=== PATIENT | female | born 1980 | race Caucasian/White ===

== ENCOUNTER → 2016-12-29 | Outpatient (CLI) | payer BC ==
--- NOTE | 2016-12-29 10:58 | WWHP ---
[facility] - HISTORY AND PHYSICAL DATE OF SERVICE: 12/29/2016. CHIEF COMPLAINT: The patient is here for her routine gynecologic exam and mammogram. HPI: This is a 36-year-old , with an LMP of 12/04/2016. The patient does have a Mirena IUD in place for control. This was placed in 01/2012. The patient is requesting that it be removed since it is due to be removed. She also states she does not like how she was feeling with the infrequent periods. She states that she feels like there is a hormonal buildup that makes her feel crabby. She states about 1 year ago she and her were contemplating attempting again, but now this is less likely and she is uncertain if she has completed her childbearing. She would like to be started on control pills, which she has done well with in the past. PAST MEDICAL HISTORY: Depression and anxiety. She tested negative for BRCA gene because of her mother's history of breast cancer and this was negative. MEDICATIONS: 1. Zoloft 25 mg daily. 2. Xanax 0.25 mg p.r.n. for anxiety. 3. Mirena IUD was in place and was placed on 01/21/2012. 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 SOCIAL HISTORY: She denies tobacco and drug use. She has about 3 alcoholic drinks per month. She has been since 2002 and works for the [employer]. REVIEW OF SYSTEMS: She has gained about 6 pounds over the last 2 years. She denies respiratory, cardiac or GI problems. PHYSICAL EXAM: Blood pressure 136/75, height 5 feet 1 inch, weight 168 pounds, temperature 98.5, pulse 70. This is a well-developed, well-nourished, white female, who is alert and oriented x3, in no acute distress. HEENT is within normal limits. NECK: Supple without mass or thyromegaly. CHEST AND LUNGS: Clear to auscultation. HEART: Regular rate and rhythm. Breasts are without mass or discharge. Axillary exam is negative for adenopathy. Back negative for CVA tenderness. ABDOMEN: Soft, nontender, without palpable masses. PELVIC EXAM: External genitalia reveals a pigmented area measuring approximately 1.5 x 1 cm on the right labia majora, which is stable from her previous exam. This was previously biopsied and was benign. The borders are regular. There are no other lesions. Cervix and vagina appear normal. The IUD string was protruding from the cervix about 2.5 cm. There is no unusual discharge and no evidence of prolapse. The uterus is mid position, nongravid size and nontender. There are no palpable adnexal masses or tenderness. The IUD was removed without difficulty as requested by the patient. The rectal exam is negative for mass or tenderness. EXTREMITIES: Nontender. IMPRESSION: 1. A 36-year-old gynecologically healthy female who had a Mirena IUD in place that was removed today. 2. Normal gynecologic exam. 3. Family history of breast cancer in her mother at age 33. PLAN: 1. Pap smear was performed. 2. Self breast examination was discussed. 3. Mirena IUD was removed today as above. She will be started on Ortho Tri-Cyclen 1 daily and she will start this on the Wednesday following the onset of her next normal menstrual period. She will use condoms through the 1st pack of pills. We have discussed possible risks with control pills including a possible increased risk for blood clots. 4. I have recommended that she take a daily multiple vitamin, especially if she decides to actively pursue . 5. Mammogram will be done today because of her family history of breast cancer and this will be done yearly. 6. She will return in 1 year. VU / JOAQUÍN: [id number] /
--- NOTE | 2016-12-30 07:13 | MM ---
Reason for exam: screening (asymptomatic). Last mammogram was performed 2 years and 9 months ago. History: Family history of breast cancer in mother at age 33 and breast cancer in aunt. Physical Findings: A clinical breast exam by your physician is recommended on an annual basis and results should be correlated with mammographic findings. MG Screening Mammo w CAD Bilateral CC and MLO view(s) were taken. Prior study comparison: April 03, 2014, bilateral MG screening mammo w CAD. January 04, 2012, CAD bilateral diagnostic mammogram. The breast tissue is heterogeneously dense. This may lower the sensitivity of mammography. ASSESSMENT: Negative, BI-RAD 1 RECOMMENDATION: Routine screening mammogram of both breasts at age 39.
== END | disposition home or self-care (01) ==
LOC: WWCWWP 09:09
PROVIDERS: ATTEND Obstetrics & Gynecology
DX: Z12.31 Encounter for screening mammogram for malignant neoplasm of breast (principal)

== ENCOUNTER → 2020-11-19 | Outpatient (CLI) | payer BC ==
[2020-11-19 14:02] VITALS: BP 107/71; PULSE 60; RESP 18; TEMP 98
--- NOTE | 2020-11-19 15:09 | P.HPOB ---
History of Present Illness H&P Date: 11/19/20 Chief Complaint: The patient is here for her routine gynecologic exam and ma mmogram. This is a 40-year-old with an LMP of 11/06/2020. The patient is without gynecologic complaints. Her is status post vasectomy. Review of Systems The patient's weight has been stable over the last year. She denies respiratory, cardiac, or G.I. problems. 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 History of Any Multi-Drug Resistant Organisms: None Reported Past Surgical History: Breast Surgery, Section, Orthopedic Surgery Additional Past Surgical History / Comment(s): Right knee surgery, section 1, removal of axillary breast tissue 2012 which was benign. 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 - Past Family History Mother Family Medical History: Cancer Additional Family Medical History / Comment(s): Breast cancer at age 33. at age 43. Maternal great aunt had breast cancer. Father Family Medical History: Myocardial Infarction ([place]) Medications and Allergies Home Medications Medication Instructions Recorded Confirmed Type ALPRAZolam [Xanax] 0.25 mg PO HS PRN 11/19/20 11/19/20 History Cholecalciferol [Vitamin D3 (25 25 mcg PO DAILY 11/19/20 11/19/20 History Mcg = 1000 Iu)] FLUoxetine HCL [PROzac] 20 mg PO DAILY 11/19/20 11/19/20 History Multivitamin [Multivitamins Adult 1 each PO DAILY 11/19/20 11/19/20 History Gummies] Allergies Allergy/AdvReac Type Severity Reaction Status Date / Time amoxicillin [From Augmentin] Allergy Rash/Hives Unverified 11/19/20 13:54 clavulanic acid Allergy Rash/Hives Unverified 11/19/20 13:54 [From Augmentin] Exam Vital Signs Temp Pulse Resp BP Pulse Ox 11/19/20 13:56 98.0 F 60 18 107/71 97 Intake and Output 11/19/20 11/19/20 11/19/20 06:59 14:59 22:59 Other: Weight 76.657 kg Height 5 feet 1-1/2 inches, weight 169 pounds, BMI 31.4. This is a well-developed well-nourished white female who is alert and oriented times 3 in no acute distress. HEENT: Within normal limits. NECK: Supple without mass or thyromegaly. CHEST AND LUNGS: Clear to auscultation. HEART: Regular rate and rhythm. BREASTS: Are without mass or discharge. AXILLARY EXAM: Negative for adenopathy. BACK: Negative for CVA tenderness. ABDOMEN: Soft, nontender, without palpable masses. PELVIC EXAM: Normal external genitalia. Cervix and vagina appear normal. There is no unusual discharge. There is no evidence of prolapse. The uterus is midposition, nongravid size and nontender. There are no palpable adnexal masses or tenderness. RECTAL EXAM: negative for mass or tenderness and is negative for occult blood. EXTREMITIES: Nontender. IMPRESSION: 1. 40-year-old female whose is status post vasectomy with normal gynecologic exam. 2. Family history of breast cancer in her mother. The patient is BRCA negative. PLAN: 1. Pap smear co-test was performed. 2. Self breast awareness was discussed with the patient. Symptoms associated with inflammatory breast cancer were discussed with the patient. 3. Screening mammogram will be done today. She will do this yearly. 4. Osteoporosis prevention was discussed. I have stressed the importance of adequate calcium, vitamin D and regular exercise. Recommended amounts of calcium and vitamin D were also discussed. 5. She was advised to return in one year for her annual well woman exam.
--- NOTE | 2020-11-20 11:26 | MM ---
Reason for exam: screening (asymptomatic). Last mammogram was performed 3 years and 11 months ago. History: Family history of breast cancer in mother at age 33 and breast cancer in aunt. Took hormonal contraceptives for 8 years. Physical Findings: A clinical breast exam by your physician is recommended on an annual basis and results should be correlated with mammographic findings. MG 3D Screening Mammo W/Cad Bilateral CC and MLO view(s) were taken. Prior study comparison: December 29, 2016, bilateral MG screening mammo w CAD. April 03, 2014, bilateral MG screening mammo w CAD. The breast tissue is heterogeneously dense. This may lower the sensitivity of mammography. Finding: There is a 10 mm circumscribed round mass in the subareolar position of the left breast. New finding since December 29, 2016. ASSESSMENT: Incomplete: need additional imaging evaluation, BI-RAD 0 RECOMMENDATION: Ultrasound of the left breast. [facility] will attempt to contact patient to return for ultrasound.
== END ==
LOC: WWCWWP 13:44
PROVIDERS: ATTEND Obstetrics & Gynecology
DX: Z12.31 Encounter for screening mammogram for malignant neoplasm of breast (principal); Z01.419 Encounter for gynecological examination (general) (routine) without abnormal findings; F41.9 Anxiety disorder, unspecified; F32.9 Major depressive disorder, single episode, unspecified; Z88.1 Allergy status to other antibiotic agents; Z80.3 Family history of malignant neoplasm of breast
CPT/HCPCS: 77063; 77067

== ENCOUNTER → 2020-12-03 | Outpatient (CLI) | payer BC ==
--- NOTE | 2020-12-03 11:36 | USB ---
Reason for exam: additional evaluation requested from abnormal screening. History: Family history of breast cancer in mother at age 33 and breast cancer in maternal aunt at age 40. Took hormonal contraceptives for 8 years. Physical Findings: Nurse did not find any significant physical abnormalities on exam. US Breast Workup Limited LT Technologist: Rita Walker Left limited breast ultrasound including focal area of concern, retroareolar and axilla demonstrates a 1.1 x 1.2 x 0.9cm solid, hypoechoic lesion at 12 o'clock. These results were verbally communicated with the patient and result sheet given to the patient on 12/03/20. ASSESSMENT: Suspicious, BI-RAD 4 RECOMMENDATION: Ultrasound core biopsy of the left breast. Called Dr. Thompson's office with mammographic findings and has scheduled an appointment for the patient for 12/19/20 at 12:[address] Kemp. Biopsy scheduled for 12/19/20 at 11:30. PRELIMINARY REPORT CALLED AND FAXED TO DR. KEMP ON 12/03/20.
== END | disposition home or self-care (01) ==
LOC: RADUSWWP 09:27
PROVIDERS: ATTEND Obstetrics & Gynecology
DX: N64.89 Other specified disorders of breast (principal); Z79.3 Long term (current) use of hormonal contraceptives; Z80.3 Family history of malignant neoplasm of breast

== ENCOUNTER → 2020-12-19 | Outpatient (CLI) | payer BC ==
[2020-12-19 12:26] VITALS: BP 114/72; PULSE 62; RESP 12; TEMP 98.1
--- NOTE | 2020-12-19 13:00 | P.GSHP ---
History of Present Illness H&P Date: 12/19/20 Chief Complaint: abnormal left breast ultrasound Millicent is a 40-year-old [place] [address]. This revealed a 10 mm circumscribed round mass in the subareolar position of the left breast. [place] [address]. This revealed a warm 0.2 x 0.9 cm solid lesion at 12:00. Ultrasound core biopsy was recommended. She does not feel any lumps masses or nodules of concern in either breast. She is not complaining of any nipple discharge or skin changes. She is not complaining of any pain in her breast. She is not complaining of any trauma or infection in her breast. She has had bilateral axillary redundant breast tissue removed in the past. The patient has had genetic testing performed which was negative. Caffeine: 1 cup/day nicotine: none chocolate: none Family history: Mother: Breast cancer at 33, at 43 of mylodysplasia as complications of the treatment; had a bone marrow transplant great aunt maternal: breast cancer in 40,s of this in her 50's maternal grandfather: mylodysplasia Hormonal History: menarche: 11 , breast fed: yes, age at first :23 periods regular: 2020 BCP: at 15 to 22, and between pregnancies, not used since 2010 hormones: none Surgical history: Right knee surgery Bilateral redundant axillary tissue removed Medical history: thyroid nodules high cholesterol Social History: nicotine: none alcohol: occasional drugs: none - Constitutional Constitutional: Reports sweats - EENT Eyes: denies blurred vision, denies pain Ears: deny: decreased hearing, tinnitus Ears, nose, mouth and throat: Denies headache, Denies sore throat - Breasts Breasts: bilateral: as per HPI - Cardiovascular Cardiovascular: Denies chest pain, Denies shortness of breath - Respiratory Respiratory: Denies cough, Denies 7 - Gastrointestinal Gastrointestinal: Denies abdominal pain, Denies diarrhea, Denies nausea, Denies vomiting - Genitourinary (Female) Genitourinary: Denies dysuria, Denies hematuria - Menstruation Menstruation: Reports period normal - Musculoskeletal Musculoskeletal: Reports myalgias - Integumentary Integumentary: Denies pruritus, Denies rash - Neurological Neurological: Denies numbness, Denies weakness - Psychiatric Psychiatric: Reports anxiety, Reports depression - Endocrine Endocrine: Reports weight change, Denies fatigue - Hematologic/Lymphatic Comment: none - Allergic/Immunologic Allergic/Immunologic: Reports as per HPI, Reports seasonal allergies Past Medical History Past Medical History: No Reported History 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 History of Any Multi-Drug Resistant Organisms: None Reported Past Surgical History: Breast Surgery, Section, Orthopedic Surgery Additional Past Surgical History / Comment(s): Right knee surgery, section 1, removal of axillary breast tissue 2012 which was benign. Past Psychological History: Anxiety, Depression Smoking Status: Never smoker Past Alcohol Use History: Rare Past Drug Use History: None Reported - Past Family History Mother Family Medical History: Cancer Additional Family Medical History / Comment(s): Breast cancer at age 33. at age 43. Maternal great aunt had breast cancer. Father Family Medical History: Myocardial Infarction ([place]) Medications and Allergies Home Medications Medication Instructions Recorded Confirmed Type ALPRAZolam [Xanax] 0.25 mg PO HS PRN 11/19/20 12/19/20 History Cholecalciferol [Vitamin D3 (25 25 mcg PO DAILY 11/19/20 12/19/20 History Mcg = 1000 Iu)] FLUoxetine HCL [PROzac] 20 mg PO DAILY 11/19/20 12/19/20 History Multivitamin [Multivitamins Adult 1 each PO DAILY 11/19/20 12/19/20 History Gummies] Atorvastatin [Lipitor] 10 mg PO DAILY 12/19/20 12/19/20 History Allergies Allergy/AdvReac Type Severity Reaction Status Date / Time amoxicillin [From Augmentin] Allergy Rash/Hives Verified 12/19/20 11:37 clavulanic acid Allergy Rash/Hives Verified 12/19/20 11:37 [From Augmentin] Surgical - Exam Vital Signs Temp Pulse Resp BP Pulse Ox 98.1 F 62 12 114/72 96 12/19/20 12:20 12/19/20 12:20 12/19/20 12:20 12/19/20 12:20 12/19/20 12:20 BMI 31.6 - General well developed, well nourished, no distress - Eyes normal ocular movement - ENT no hearing loss - Neck no masses, trachea midline - Respiratory normal respiratory effort, clear to auscultation - Cardiovascular Rhythm: regular Heart Sounds: normal: S1, S2 - Abdomen Abdomen: soft, non tender, no guarding, no rigid, no rebound - Integumentary normal turgor - Neurologic no disoriented, no combative - Musculoskeletal normal gait, normal posture - Psychiatric oriented to time, oriented to person, oriented to place, speech is normal Breast Exam: BRA: 38B inspection: Lateral grade 2 ptosis Palpation: Right breast: Multi-positional exam dense breast fibrocystic changes no dominant masses or nodules of concern Right axilla: No adenopathy of concern Left breast: Multi-positional exam fibrocystic changes dense breasts no dominant masses or nodules of concern, particularly attention paid to the posterior areolar area but no lesions of concern were palpated Left axilla: No adenopathy of concern Results Mammogram and ultrasound results reviewed Assessment and Plan Assessment: Impression: 1. Ultrasound abnormality left breast 2. Family history of breast cancer 3. Dense breast/fibrocystic changes 4. High cholesterol 5. Anxiety/depression Plan: 1. Ultrasound-guided core biopsy left breast 2. Patient has had genetic testing done in the past would consider repeating this 3. After ultrasound-guided core biopsy 4. Consider hormone reduction therapy for breast cancer Risk and benefits of the procedure discussed with the patient she understands and wishes to proceed. CC: Dr. Jay Farmer
== END ==
LOC: WWCWWP 11:24
PROVIDERS: ATTEND Surgery
DX: N60.12 Diffuse cystic mastopathy of left breast (principal); E78.00 Pure hypercholesterolemia, unspecified; F41.9 Anxiety disorder, unspecified; F32.9 Major depressive disorder, single episode, unspecified; Z80.3 Family history of malignant neoplasm of breast; Z79.899 Other long term (current) drug therapy; Z88.1 Allergy status to other antibiotic agents

== ENCOUNTER → 2020-12-19 | Day surgery (SDC) | payer BC ==
[2020-12-19 11:45] VITALS: RESP 16
[2020-12-19 14:09] VITALS: BP 116/76; PULSE 67; TEMP 97.9
--- NOTE | 2020-12-19 16:38 | USB ---
EXAMINATION TYPE: US biopsy breast VAD LT, MG postbiopsy diagnostic mammo LT wo CAD DATE OF EXAM: 12/19/2020 CLINICAL HISTORY: 40-year-old female R92.8 Abnormal Imaging. TECHNIQUE: Ultrasound guided core biopsy of the left breast. COMPARISON: 12/03/2020, 11/19/2020, 12/29/2016, 04/03/2014 FINDINGS: The procedure of ultrasound guided core biopsy was explained to the patient. Benefits, alt ernatives, and risks were discussed. An informed consent was then obtained. The 1.1 cm oval, circumscribed, solid hypoechoic mass with posterior true transmission at the 12:00 p osition Zone-A was identified and targeted for biopsy. The patient was placed in supine positioning for imaging and for the procedure. The overlying skin w as prepped and draped in usual sterile fashion. Lidocaine was used as anesthetic into the skin and s ubcutaneous tissue up to area of concern in the 12:00 left breast. Under ultrasound guidance, a 13-gauge vacuum-assisted mammotome Elite biopsy gun was used to obtain 4 core samples. Following this, a ribbon clip was left in lesion. The patient tolerated the procedure well without any immediate complication. The patient was kept in the radiology department for short stay after the procedure and then discharged home in stable condi tion. Postprocedure mammogram shows clip at the site of mammographic mass. IMPRESSION: Successful, uncomplicated ultrasound guided core biopsy of the 12:00 periareolar left breast mass, lockwood spected fibroadenoma, full pathology results to follow. If benign results, six-month follow-up post b iopsy mammogram can be performed.
== END ==
LOC: RADUSWWP 11:25
PROVIDERS: ATTEND Surgery
DX: Z09 Encounter for follow-up examination after completed treatment for conditions other than malignant neoplasm (principal); D24.2 Benign neoplasm of left breast
CPT/HCPCS: 88305; 77065; 19083; A4648; J2001

== ENCOUNTER → 2020-12-26 | Outpatient (CLI) | payer BC ==
[2020-12-26 11:35] VITALS: BP 130/84; PULSE 67; RESP 16; TEMP 98.3
--- NOTE | 2020-12-26 12:09 | P.PN ---
Progress Note - Text Progress Note Date: 12/26/20 Millicent is a 40-year-old white female status post left breast core biopsy on 9620. Pathology revealed benign fibroadenoma. She tolerated the procedure without difficulty. Patient has very strong family history of breast cancer. Mother: Breast cancer at 33, at 43 of myelodysplasia his complications of the treatment did undergo bone marrow transplant Great aunt on maternal side: Breast cancer in her 40s of this in her 50s Maternal grandfather: Myelodysplasia Eunice Risk: 1.8% 5 year risk 21.9% lifetime risk vs. 12.3% risk Impression: Patient doing well status post left breast ultrasound core biopsy Plan: Repeat left breast ultrasound in 6 months with physician examined that time Close surveillance secondary to strong family history We have discussed chemoprophylaxis and at this time patient is not interested Patient would like to repeat genetic testing and we will set her up for this Depending on results of genetic testing we'll see patient back sooner CC: Dr. Vásquez
== END ==
LOC: WWCWWP 11:05
PROVIDERS: ATTEND Surgery
DX: D24.2 Benign neoplasm of left breast (principal); Z88.1 Allergy status to other antibiotic agents

== ENCOUNTER → 2021-06-19 | Outpatient (CLI) | payer BC ==
--- NOTE | 2021-06-19 09:54 | USB ---
Reason for exam: follow-up at short interval from prior study. History: Family history of breast cancer in mother at age 33 and breast cancer in maternal aunt at age 40. Benign US biopsy breast VAD LT of the left breast, December 19, 2020. Took hormonal contraceptives for 8 years. Physical Findings: A clinical breast exam by your physician is recommended on an annual basis and results should be correlated with mammographic findings. US Breast Limited LT Left limited breast ultrasound including focal area of concern, retroareolar and axilla demonstrates a 0.8 x 0.7 x 0.7cm irregular, solid, vascular lesion at 12 o'clock prior biopsy site, clip seen, a 1.5 x 1.7 x 0.8cm lymph node at the axilla and a 0.3 x 0.2 x 0.2cm oval, solid lesion at 1 o'clock. These results were verbally communicated with the patient and result sheet given to the patient on 06/19/21. ASSESSMENT: Benign, BI-RAD 2 RECOMMENDATION: Return to routine screening mammogram schedule for both breasts. Back on schedule.
== END | disposition home or self-care (01) ==
LOC: RADUSWWP 09:01
PROVIDERS: ATTEND Surgery
DX: R92.8 Other abnormal and inconclusive findings on diagnostic imaging of breast (principal); Z80.3 Family history of malignant neoplasm of breast

== ENCOUNTER → 2021-06-26 | Outpatient (CLI) | payer BC ==
[2021-06-26 11:38] VITALS: BP 135/80; PULSE 76; RESP 17; TEMP 97.9
--- NOTE | 2021-06-26 12:50 | P.PN ---
Subjective Progress Note Date: 06/26/21 Principal diagnosis: Left breast fibroadenoma Millicent is a 40-year-old [place] [address]. This revealed a 10 mm circumscribed round mass in the subareolar position of the left breast. [place] [address]. This revealed a warm 0.2 x 0.9 cm solid lesion at 12:00. Ultrasound core biopsy was recommended. She does not feel any lumps masses or nodules of concern in either breast. She is not complaining of any nipple discharge or skin changes. She is not complaining of any pain in her breast. She is not complaining of any trauma or infection in her breast. She has had bilateral axillary redundant breast tissue removed in the past. The patient has had genetic testing performed which was negative. The patient [place] [address]. This was benign BIRADS 2. It revealed a 0.8 x 0.7 cm irregular solid lesion at 12:00 with a clip in the lesion. This was reviewed personally with Dr. Montelongo and felt to be the site which had been adequately biopsied and consistent with a fibroadenoma. Patient does not complain of any new lumps masses or nodules of concern in either breast. Caffeine: 1 cup/day nicotine: none chocolate: none Family history: Mother: Breast cancer at 33, at 43 of mylodysplasia as complications of the treatment; had a bone marrow transplant great aunt maternal: breast cancer in 40,s of this in her 50's maternal grandfather: mylodysplasia Hormonal History: menarche: 11 , breast fed: yes, age at first :23 periods regular: 2020 BCP: at 15 to 22, and between pregnancies, not used since 2010 hormones: none Surgical history: Right knee surgery Bilateral redundant axillary tissue removed Medical history: thyroid nodules high cholesterol Social History: nicotine: none alcohol: occasional drugs: none - Constitutional Constitutional: Reports sweats - EENT Eyes: denies blurred vision, denies pain Ears: deny: decreased hearing, tinnitus Ears, nose, mouth and throat: Denies headache, Denies sore throat - Breasts Breasts: bilateral: as per HPI - Cardiovascular Cardiovascular: Denies chest pain, Denies shortness of breath - Respiratory Respiratory: Denies cough - Gastrointestinal Gastrointestinal: Denies abdominal pain, Denies diarrhea, Denies nausea, Denies vomiting - Genitourinary (Female) Genitourinary: Denies dysuria, Denies hematuria - Menstruation Menstruation: Reports period normal - Musculoskeletal Musculoskeletal: Reports myalgias - Integumentary Integumentary: Denies pruritus, Denies rash - Neurological Neurological: Denies numbness, Denies weakness - Psychiatric Psychiatric: Reports anxiety, Reports depression - Endocrine Endocrine: Reports weight change, Denies fatigue - Hematologic/Lymphatic Comment: none - Allergic/Immunologic Allergic/Immunologic: Reports as per HPI, Reports seasonal allergies Past Medical History Past Medical History: No Reported History 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 History of Any Multi-Drug Resistant Organisms: None Reported Past Surgical History: Breast Surgery, Section, Orthopedic Surgery Additional Past Surgical History / Comment(s): Right knee surgery, section 1, removal of axillary breast tissue 2012 which was benign. Past Psychological History: Anxiety, Depression Smoking Status: Never smoker Past Alcohol Use History: Rare Past Drug Use History: None Reported Objective - Vital Signs Vital signs: Vital Signs Temp 97.9 F 06/26/21 11:36 Pulse 76 06/26/21 11:36 Resp 17 06/26/21 11:36 BP 135/80 06/26/21 11:36 Pulse Ox 97 06/26/21 11:36 Intake & Output 06/25/21 06/26/21 06/26/21 18:59 06:59 18:59 Weight 77.111 kg - Exam BMI 32.1 - Constitutional General appearance: Present: cooperative - EENT Eyes: Present: EOMI ENT: Present: hearing grossly normal - Neck Neck: Present: normal ROM - Respiratory Respiratory: bilateral: CTA - Cardiovascular Rhythm: regular Heart sounds: normal: S1, S2 - Gastrointestinal General gastrointestinal: Present: soft - Integumentary Integumentary: Present: normal turgor - Musculoskeletal Musculoskeletal: Present: gait normal - Psychiatric Psychiatric: Present: A&O x's 3, appropriate affect, intact judgment & insight - Additional findings Additional findings: Breast Exam: BRA: 38B inspection: Bilateral grade 2 ptosis Palpation: Right breast: Multiple positional exam fibrocystic changes no dominant masses or nodules of concern Right axilla: No adenopathy of concern Left breast: Multi-positional exam fibrocystic changes no dominant masses or nodules of concern Left axilla: No adenopathy of concern Assessment and Plan Assessment: Impression: Fibrocystic breast changes Patient known family history of breast cancer risk evaluation: Jenise 22-36% lifetime risk of breast cancer Eunice model 1.8% 5 year risk Plan: Patient does qualify for MRI screening of the breast secondary to her high lifetime risk of breast cancer; she is due for a mammogram in November but will plan on an MRI at that time followup after MRI CC: Dr. Vásquez
== END ==
LOC: WWCWWP 11:29
PROVIDERS: ATTEND Surgery
DX: N60.11 Diffuse cystic mastopathy of right breast (principal); N60.12 Diffuse cystic mastopathy of left breast; Z85.3 Personal history of malignant neoplasm of breast; E78.00 Pure hypercholesterolemia, unspecified; F41.9 Anxiety disorder, unspecified; F32.A Depression, unspecified; Z88.1 Allergy status to other antibiotic agents

== ENCOUNTER → 2021-12-02 | Outpatient (CLI) | payer BC ==
--- NOTE | 2021-12-04 07:15 | BMR ---
EXAMINATION TYPE: MR breast BILAT wo/w con DATE OF EXAM: 12/02/2021 COMPARISON: Bilateral screening mammogram November 19, 2020 BI-RADS 0. Ultrasound left breast June 19, 2021 BI-RADS 2 HISTORY: Abnormal U/S showing lump at 12 o'clock Lt breast , swollen lymph node in lt axilla. Left br east ultrasound guided biopsy December 19, 2020 benign fibroadenoma. TECHNIQUE: A series of fat and water weighted images in the long and short axis views of both breasts are obtained in conjunction with dynamic contrast MRI with subtraction technique. The patient was i njected with 8 mL intravenous Gadavist gadolinium contrast. Three-dimensional and additional postpr ocessing imaging is created on independent workstation and reviewed during official interpretation of this study. FINDINGS: Heterogeneously dense fibroglandular tissue is present bilaterally. Symmetric benign appear ing bilateral axillary lymph nodes are seen. Findings correlate with most recent left breast ultrasou nd. No suspicious focal fluid collections or cystic masses in either breast. Dynamic postcontrast kemi ging shows mild symmetric background enhancement. Delayed dynamic imaging shows no suspicious intrama mmary adenopathy bilaterally. With regards to the right breast. There is no abnormal skin thickening seen. No suspicious enhancing masses are present. Chest wall appears intact. Left breast shows no suspicious skin thickening. There is a solid rounded enhancing mass just above t he nipple with artifact from biopsy clip measuring 10 x 7 mm corresponding to biopsy-proven fibroaden meron. No additional suspicious enhancing masses. Chest wall is intact. IMPRESSION: No MRI evidence for invasive malignancy in either breast. BI-RADS 2 benign findings Recommendation: Patient currently due for bilateral breast mammogram to be on annual schedule.
== END | disposition home or self-care (01) ==
LOC: RADMRIMAIN 12:17
PROVIDERS: ATTEND Surgery
DX: R92.8 Other abnormal and inconclusive findings on diagnostic imaging of breast (principal); Z80.3 Family history of malignant neoplasm of breast
CPT/HCPCS: 77049; A9585

== ENCOUNTER → 2022-03-19 | Outpatient (CLI) | payer BC ==
[2022-03-19 16:13] VITALS: BP 119/77; PULSE 58; RESP 16; TEMP 97.8
--- NOTE | 2022-03-19 16:34 | P.PN ---
Subjective Progress Note Date: 03/19/22 Principal diagnosis: High risk breast cancer Left breast fibroadenoma Millicent is a 41-year-old [place] [address]. This revealed a 10 mm circumscribed round mass in the subareolar position of the left breast. [place] [address]. This revealed a warm 0.2 x 0.9 cm solid lesion at 12:00. Ultrasound core biopsy was recommended. She does not feel any lumps masses or nodules of concern in either breast. She is not complaining of any nipple discharge or skin changes. She is not complaining of any pain in her breast. She is not complaining of any trauma or infection in her breast. She has had bilateral axillary redundant breast tissue removed in the past. The patient has had genetic testing performed which was negative. The patient had [place] ultrasound[place] [address]. This was benign BIRADS 2. It revealed a 0.8 x 0.7 cm irregular solid lesion at 12:00 with a clip in the lesion. This was reviewed personally with Dr. Montelongo and felt to be the site which had been adequately biopsied and consistent with a fibroadenoma. Patient does not complain of any new lumps masses or nodules of concern in either breast. The patient had a bilateral breat MRI on 12-02-21 which was BIRAD 2. The patient complaining of any new lumps masses or nodules of concern in either breast. Jenise this evaluation was 22-36% lifetime risk of breast cancer, Eunice model was 1.8% five-year risk. We have discussed chemoprevention at this point the patient is going to close surveillance. Caffeine: 1 cup/day nicotine: none chocolate: none Family history: Mother: Breast cancer at 33, at 43 of mylodysplasia as complications of the treatment; had a bone marrow transplant great aunt maternal: breast cancer in 40,s of this in her 50's maternal grandfather: mylodysplasia Hormonal History: menarche: 11 , breast fed: yes, age at first :23 periods regular: 2020 BCP: at 15 to 22, and between pregnancies, not used since 2010 hormones: none Surgical history: Right knee surgery Bilateral redundant axillary tissue removed Medical history: thyroid nodules high cholesterol Social History: nicotine: none alcohol: occasional drugs: none - Constitutional Constitutional: Reports sweats - EENT Eyes: denies blurred vision, denies pain Ears: deny: decreased hearing, tinnitus Ears, nose, mouth and throat: Denies headache, Denies sore throat - Breasts Breasts: bilateral: as per HPI - Cardiovascular Cardiovascular: Denies chest pain, Denies shortness of breath - Respiratory Respiratory: Denies cough - Gastrointestinal Gastrointestinal: Denies abdominal pain, Denies diarrhea, Denies nausea, Denies vomiting - Genitourinary (Female) Genitourinary: Denies dysuria, Denies hematuria - Menstruation Menstruation: Reports period normal - Musculoskeletal Musculoskeletal: Reports myalgias - Integumentary Integumentary: Denies pruritus, Denies rash - Neurological Neurological: Denies numbness, Denies weakness - Psychiatric Psychiatric: Reports anxiety, Reports depression - Endocrine Endocrine: Reports weight change, Denies fatigue - Hematologic/Lymphatic Comment: none - Allergic/Immunologic Allergic/Immunologic: Reports as per HPI, Reports seasonal allergies Past Medical History Past Medical History: No Reported History 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 History of Any Multi-Drug Resistant Organisms: None Reported Past Surgical History: Breast Surgery, Section, Orthopedic Surgery Additional Past Surgical History / Comment(s): Right knee surgery, section 1, removal of axillary breast tissue 2013 which was benign. Past Psychological History: Anxiety, Depression Smoking Status: Never smoker Past Alcohol Use History: Rare Past Drug Use History: None Reported Objective - Vital Signs Vital signs: Vital Signs Temp 97.8 F 03/19/22 16:09 Pulse 58 L 03/19/22 16:09 Resp 16 03/19/22 16:09 BP 119/77 03/19/22 16:09 Pulse Ox 96 03/19/22 16:09 FiO2 Intake & Output 03/18/22 03/19/22 03/19/22 18:59 06:59 18:59 Weight 77.111 kg - Constitutional General appearance: Present: cooperative - EENT Eyes: Present: EOMI ENT: Present: hearing grossly normal - Neck Neck: Present: normal ROM - Respiratory Respiratory: bilateral: CTA - Cardiovascular Heart sounds: normal: S1, S2 - Integumentary Integumentary: Present: normal turgor - Musculoskeletal Musculoskeletal: Present: gait normal - Psychiatric Psychiatric: Present: A&O x's 3, appropriate affect, intact judgment & insight - Additional findings Additional findings: Breast Exam: BRA: 38B Inspection: A lateral grade 2 ptosis Palpation: Right breast: Multi-positional exam fibrocystic changes no dominant masses or nodules of concern dense breast Right axilla: No adenopathy of concern Left breast: Multi-positional exam fibrocystic changes no discrete dominant masses or nodules of concern, dense breast Left axilla: No adenopathy of concern Assessment and Plan Assessment: Impression: Fibrocystic breast changes Risk evaluation 22-36% lifetime risk Tyrer-Cuzick model Eunice model model 1.8% 5 year risk; declined chemoprevention Patient had bilateral MRI in November which was benign by red 2 Plan: Alternating MRI with mammogram every 6 months patient will have a bilateral mammogram in May with physician exam at that time secondary to high risk of breast cancer Cc: Dr. Vásquez
== END ==
LOC: WWCWWP 16:01
PROVIDERS: ATTEND Surgery
DX: N60.11 Diffuse cystic mastopathy of right breast (principal); N60.12 Diffuse cystic mastopathy of left breast; Z88.0 Allergy status to penicillin; Z88.1 Allergy status to other antibiotic agents

== ENCOUNTER → 2023-03-05 | Outpatient (CLI) | payer BC ==
--- NOTE | 2023-03-05 14:06 | P.PN ---
Subjective Progress Note Date: 03/05/23 Principal diagnosis: high risk breast cancer Subjective Progress Note Date: 06/04/22 Principal diagnosis: High risk breast cancer Left breast fibroadenoma Millicent is a 41-year-old [place] [address]. This revealed a 10 mm circumscribed round mass in the subareolar position of the left breast. [place] [address]. This revealed a warm 0.2 x 0.9 cm solid lesion at 12:00. Ultrasound core biopsy was recommended. She does not feel any lumps masses or nodules of concern in either breast. She is not complaining of any nipple discharge or skin changes. She is not complaining of any pain in her breast. She is not complaining of any trauma or infection in her breast. She has had bilateral axillary redundant breast tissue removed in the past. The patient has had genetic testing performed which was negative. The patient [place] ultrasound[place] [address]. This was benign BIRADS 2. It revealed a 0.8 x 0.7 cm irregular solid lesion at 12:00 with a clip in the lesion. This was reviewed personally with Dr. Montelongo and felt to be the site which had been adequately biopsied and consistent with a fibroadenoma. Patient does not complain of any new lumps masses or nodules of concern in either breast. The patient had a bilateral breast MRI on 12-02-21 which was BIRAD 2. The patient complaining of any new lumps masses or nodules of concern in either breast. Tyrer-Cuzick this evaluation was 22-36% lifetime risk of breast cancer, Eunice model was 1.8% five-year risk. We have discussed chemoprevention at this point the patient is going to close surveillance. 06-04-22 The patient is not complaining of any new lumps masses or nodules of concern in either breast. She underwent a bilateral mammogram on 322 which was felt to be BIRADS 0 and bilateral breast ultrasound were recommended. Verbal report on the ultrasound was that this was did not show any lesions of concern. This was read as BIRAD 2. 03-05-23 [place] [address] benign Is not concerned about any lumps masses or nodules in either breast Caffeine: 1 cup/day nicotine: none chocolate: none Family history: Mother: Breast cancer at 33, at 43 of mylodysplasia as complications of the treatment; had a bone marrow transplant great aunt maternal: breast cancer in 40,s of this in her 50's maternal grandfather: mylodysplasia Hormonal History: menarche: 11 , breast fed: yes, age at first :23 periods regular: 2020 BCP: at 15 to 22, and between pregnancies, not used since 2010 hormones: none Surgical history: Right knee surgery Bilateral redundant axillary tissue removed Medical history: thyroid nodules high cholesterol Social History: nicotine: none alcohol: occasional drugs: none - Constitutional Constitutional: Reports sweats - EENT Eyes: denies blurred vision, denies pain Ears: deny: decreased hearing, tinnitus Ears, nose, mouth and throat: Denies headache, Denies sore throat - Breasts Breasts: bilateral: as per HPI - Cardiovascular Cardiovascular: Denies chest pain, Denies shortness of breath - Respiratory Respiratory: Denies cough - Gastrointestinal Gastrointestinal: Denies abdominal pain, Denies diarrhea, Denies nausea, Denies vomiting - Genitourinary (Female) Genitourinary: Denies dysuria, Denies hematuria - Menstruation Menstruation: Reports period normal - Musculoskeletal Musculoskeletal: Reports myalgias - Integumentary Integumentary: Denies pruritus, Denies rash - Neurological Neurological: Denies numbness, Denies weakness - Psychiatric Psychiatric: Reports anxiety, Reports depression - Endocrine Endocrine: Reports weight change, Denies fatigue - Hematologic/Lymphatic Comment: none - Allergic/Immunologic Allergic/Immunologic: Reports as per HPI, Reports seasonal allergies Past Medical History Past Medical History: No Reported History 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 History of Any Multi-Drug Resistant Organisms: None Reported Past Surgical History: Breast Surgery, Section, Orthopedic Surgery Additional Past Surgical History / Comment(s): Right knee surgery, section 1, removal of axillary breast tissue 2012 which was benign. Past Psychological History: Anxiety, Depression Smoking Status: Never smoker Past Alcohol Use History: Rare Past Drug Use History: None Reported Objective - Constitutional General appearance: Present: cooperative - EENT Eyes: Present: EOMI ENT: Present: hearing grossly normal - Neck Neck: Present: normal ROM - Respiratory Respiratory: bilateral: CTA - Cardiovascular Rhythm: regular Heart sounds: normal: S1, S2 - Integumentary Integumentary: Present: normal turgor - Musculoskeletal Musculoskeletal: Present: gait normal - Psychiatric Psychiatric: Present: A&O x's 3, appropriate affect, intact judgment & insight - Additional findings Additional findings: Breast Exam: BRA: 38B Inspection: bilateral grade 2 ptosis Palpation: Right breast: Multi-positional exam fibrocystic changes no dominant masses or nodules of concern dense breast Right axilla: No adenopathy of concern Left breast: Multi-positional exam fibrocystic changes no discrete dominant masses or nodules of concern, dense breast Left axilla: No adenopathy of concern Assessment and Plan Assessment: Impression: Fibrocystic breast changes Risk evaluation 22-36% lifetime risk Tyrer-Cuzick model Eunice model model 1.8% 5 year risk; declined chemoprevention Patient had bilateral MRI 02-05-23 which was benign Plan: bilateral mammogram in 6 months examination at that time Cc: Dr. Vásquez
[2023-03-05 14:32] VITALS: BP 110/62; PULSE 67; RESP 17; TEMP 98.3
== END ==
LOC: WWCWWP 13:46
PROVIDERS: ATTEND Surgery
DX: N60.12 Diffuse cystic mastopathy of left breast (principal); E78.00 Pure hypercholesterolemia, unspecified; E04.2 Nontoxic multinodular goiter; F41.9 Anxiety disorder, unspecified; F32.A Depression, unspecified; Z80.3 Family history of malignant neoplasm of breast; Z88.0 Allergy status to penicillin; Z88.8 Allergy status to other drugs, medicaments and biological substances

== ENCOUNTER → 2023-08-09 | Outpatient (CLI) | payer BC ==
--- NOTE | 2023-08-09 13:46 | MM ---
Reason for Exam: Follow-up at short interval from prior study. Last mammogram was performed 1 year(s) and 2 month(s) ago. Patient History: Menarche at age 10. First Full-Term at age 23. Patient has history of breast feeding. Patient tested for BRCA1 outcome was negative. Patient tested for BRCA2 outcome was negative. Patient tested for PTEN outcome was negative. Patient tested for TP53 outcome was negative. Patient used Hormonal Contraceptives for 8 years. 12/19/2020, Benign Core Biopsy on the left side. Maternal aunt had breast cancer, age 40. Mother had breast cancer, age 33. Last menstrual period: 08/06/2023 Risk Values: Eunice 5 year model risk: 2.5%. NCI Lifetime model risk: 22.9%. Prior Study Comparison: 12/29/2016 Bilateral Screening Mammogram, [facility]. 11/19/2020 Bilateral Screening Mammogram, [facility] 12/19/2020 Left Diagnostic Mammogram, [facility]. 06/04/2022 Bilateral MG 3D diag mammo w/cad JOSE, [facility]. Tissue Density: The breasts are heterogeneously dense, which may obscure small masses. Findings: Analyzed By CAD. Chronic nodularity subareolar left breast with microclip from prior biopsy. A mole has been marked along the medial posterior aspect of the left breast. Just adjacent, there is a 1 cm circumscribed nodule noted to be new from 2017 and gradually enlarging. A cyst is possible. Further ultrasound evaluation is recommended. Otherwise, no significant change. Overall Assessment: Incomplete: need additional imaging evaluation, BI-RAD 0 Management: Diagnostic Breast Ultrasound of the left breast. Electronically signed and approved by: Rosaura Catalan M.D. Radiologist
--- NOTE | 2023-08-09 14:21 | USB ---
Reason for Exam: Additional evaluation requested from abnormal screening. Patient History: Menarche at age 10. First Full-Term at age 23. Patient has history of breast feeding. Patient tested for BRCA1 outcome was negative. Patient tested for BRCA2 outcome was negative. Patient tested for PTEN outcome was negative. Patient tested for TP53 outcome was negative. Patient used Hormonal Contraceptives for 8 years. 12/19/2020, Benign Core Biopsy on the left side. Maternal aunt had breast cancer, age 40. Mother had breast cancer, age 33. Risk Values: Eunice 5 year model risk: 2.5%. NCI Lifetime model risk: 22.9%. Technique: Method: Targeted. Prior Study Comparison: 11/19/2020 Bilateral Screening Mammogram, [facility]. 12/19/2020 Left Diagnostic Mammogram, [facility]. 06/04/2022 Bilateral MG 3D diag mammo w/cad JOSE, [facility]. Findings: The medial section of the breast of the left breast, the axilla of the left breast and the retroareolar of the left breast were scanned. Targeted ultrasound 9:00 medial left breast including scanning of the subareolar region and axilla. At the 9:00 position, 6 cm from the nipple, there is an oval circumscribed hypoechoic area measuring 1.3 x 0.9 x 0.5 cm. Posterior to transmission is present. Possible fibroadenoma. Six-month follow-up recommended. Overall Assessment: Probably benign, BI-RAD 3 Management: Diagnostic Mammogram of the left breast in 6 months. Diagnostic Breast Ultrasound of the left breast in 6 months. A clinical breast exam by your physician is recommended on an annual basis and results should be correlated with mammographic findings. This exam should not preclude additional follow-up of suspicious palpable abnormalities. Results were given to the patient verbally at the time of exam. Note on Eunice scores and lifetime risk: 1. A Eunice score greater than 3% is considered moderate risk. If this is the case, consider specialist referral to assess eligibility for a risk reducing agent. 2. If overall lifetime risk for the development of breast cancer is 20% or higher, the patient may qualify for future screening with alternating mammogram and breast MRI. Electronically signed and approved by: Rosaura Catalan M.D. Radiologist
== END | disposition home or self-care (01) ==
LOC: RADMAMWWP 13:03
PROVIDERS: ATTEND Surgery
DX: N63.25 Unspecified lump in the left breast, overlapping quadrants (principal); R92.333 Mammographic heterogeneous density, bilateral breasts; Z80.3 Family history of malignant neoplasm of breast
CPT/HCPCS: 77062; 77066

== ENCOUNTER → 2023-08-13 | Outpatient (CLI) | payer BC ==
--- NOTE | 2023-08-13 14:10 | P.PN ---
Subjective Progress Note Date: 08/13/23 Principal diagnosis: high risk breast cancer high risk breast cancer Subjective Progress Note Date: 06/04/22 Principal diagnosis: High risk breast cancer Left breast fibroadenoma Millicent is a 41-year-old [place] [address]. This revealed a 10 mm circumscribed round mass in the subareolar position of the left breast. [place] [address]. This revealed a warm 0.2 x 0.9 cm solid lesion at 12:00. Ultrasound core biopsy was recommended. She does not feel any lumps masses or nodules of concern in either breast. She is not complaining of any nipple discharge or skin changes. She is not complaining of any pain in her breast. She is not complaining of any trauma or infection in her breast. She has had bilateral axillary redundant breast tissue removed in the past. The patient has had genetic testing performed which was negative. The patient [place] [address]. This was benign BIRADS 2. It revealed a 0.8 x 0.7 cm irregular solid lesion at 12:00 with a clip in the lesion. This was reviewed personally with Dr. Montelongo and felt to be the site which had been adequately biopsied and consistent with a fibroadenoma. Patient does not complain of any new lumps masses or nodules of concern in either breast. The patient had a bilateral breast MRI on 12-02-21 which was BIRAD 2. The patient complaining of any new lumps masses or nodules of concern in either breast. Tyrer-Cuzick this evaluation was 22-36% lifetime risk of breast cancer, Eunice model was 1.8% five-year risk. We have discussed chemoprevention at this point the patient is going to close surveillance. 06-04-22 The patient is not complaining of any new lumps masses or nodules of concern in either breast. She underwent a bilateral mammogram on 3222 which was felt to be BIRADS 0 and bilateral breast ultrasound were recommended. Verbal report on the ultrasound was that this was did not show any lesions of concern. This was read as BIRAD 2. 03-05-23 [place] [address] benign Is not concerned about any lumps masses or nodules in either breast 08-13-23 bilateral mammogram and left breast ultrasound on 08-09-23; BIRAD 3 repeat left breast mammogram dna ultrasound in 6 months (alternating with MRI) The patient does not feel any lumps masses or nodules of concern in either breast.The patient has lost 40 pounds, intentionally Caffeine: 1 cup/day nicotine: none chocolate: none Family history: Mother: Breast cancer at 33, at 43 of mylodysplasia as complications of the treatment; had a bone marrow transplant great aunt maternal: breast cancer in 40,s of this in her 50's maternal grandfather: mylodysplasia Hormonal History: menarche: 11 , breast fed: yes, age at first :23 periods regular: Dec.05, 2020 BCP: at 15 to 22, and between pregnancies, not used since 2010 hormones: none Surgical history: Right knee surgery Bilateral redundant axillary tissue removed Medical history: thyroid nodules high cholesterol Social History: nicotine: none alcohol: occasional drugs: none - Constitutional Constitutional: Reports sweats - EENT Eyes: denies blurred vision, denies pain Ears: deny: decreased hearing, tinnitus Ears, nose, mouth and throat: Denies headache, Denies sore throat - Breasts Breasts: bilateral: as per HPI - Cardiovascular Cardiovascular: Denies chest pain, Denies shortness of breath - Respiratory Respiratory: Denies cough - Gastrointestinal Gastrointestinal: Denies abdominal pain, Denies diarrhea, Denies nausea, Denies vomiting - Genitourinary (Female) Genitourinary: Denies dysuria, Denies hematuria - Menstruation Menstruation: Reports period normal - Musculoskeletal Musculoskeletal: Reports myalgias - Integumentary Integumentary: Denies pruritus, Denies rash - Neurological Neurological: Denies numbness, Denies weakness - Psychiatric Psychiatric: Reports anxiety, Reports depression - Endocrine Endocrine: Reports weight change, Denies fatigue - Hematologic/Lymphatic Comment: none - Allergic/Immunologic Allergic/Immunologic: Reports as per HPI, Reports seasonal allergies Past Medical History Past Medical History: No Reported History 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 History of Any Multi-Drug Resistant Organisms: None Reported Past Surgical History: Breast Surgery, Section, Orthopedic Surgery Additional Past Surgical History / Comment(s): Right knee surgery, section 1, removal of axillary breast tissue 2012 which was benign. Past Psychological History: Anxiety, Depression Smoking Status: Never smoker Past Alcohol Use History: Rare Past Drug Use History: None Reported Objective - Constitutional General appearance: Present: cooperative - EENT Eyes: Present: edentulous ENT: Present: hearing grossly normal - Neck Neck: Present: normal ROM - Respiratory Respiratory: bilateral: CTA - Cardiovascular Rhythm: regular Heart sounds: normal: S1, S2 - Integumentary Integumentary: Present: normal turgor - Musculoskeletal Musculoskeletal: Present: gait normal - Psychiatric Psychiatric: Present: A&O x's 3, appropriate affect, intact judgment & insight - Additional findings Additional findings: Breast Exam: BRA: 38B Inspection: bilateral grade 2 ptosis Palpation: Right breast: Multi-positional exam fibrocystic changes no dominant masses or nodules of concern dense breast Right axilla: No adenopathy of concern Left breast: Multi-positional exam fibrocystic changes no discrete dominant masses or nodules of concern, dense breast Left axilla: No adenopathy of concern Assessment and Plan Assessment: Impression: Fibrocystic breast changes Risk evaluation 22-36% lifetime risk Tyrer-Cuzick model Eunice model model 1.8% 5 year risk; declined chemoprevention Patient had bilateral MRI 02-05-23 which was benign Plan: Alternating MRI and mammograms, she will be due for bilateral MRI in January 2024 and will follow-up with me then Follow-up sooner any questions or concerns Cc: Dr. Vásquez
[2023-08-13 15:09] VITALS: BP 133/83; PULSE 78; RESP 17; TEMP 97.8
== END ==
LOC: WWCWWP 13:49
PROVIDERS: ATTEND Surgery
DX: R92.8 Other abnormal and inconclusive findings on diagnostic imaging of breast (principal); N60.11 Diffuse cystic mastopathy of right breast; N60.12 Diffuse cystic mastopathy of left breast; D24.2 Benign neoplasm of left breast; Z98.890 Other specified postprocedural states; Z80.3 Family history of malignant neoplasm of breast; Z88.0 Allergy status to penicillin; Z88.8 Allergy status to other drugs, medicaments and biological substances

== ENCOUNTER → 2024-02-25 | Outpatient (CLI) | payer BC ==
--- NOTE | 2024-03-01 08:50 | BMR ---
EXAM DATE: 02/25/2024 EXAM DESCRIPTION: MRI-Breast Bilat (W/WO Contrast) INDICATION: History of breast cancer in mother. History of left breast biopsy. Abnormal mammogram 08/09/2023. COMPARISON: PRIOR MRIs: Prior MRI 02/05/2023. Correlation to mammograms: Mammogram 08/09/2023. Correlation to ultrasound: Left breast ultrasound 08/09/2023. CONTRAST: 5.5 cc Gadavist IV gadolinium contrast TECHNIQUE: Multiplanar multisequence MR imaging of both breasts was performed with a dedicated breast coil. Images were obtained before and after administration of IV gadolinium, using the standard breast mass protocol. Computer aided detection was utilized for interpretation. FINDINGS: LMP: 02/18/2024. General breast composition: The breast is heterogeneously dense Background parenchymal enhancement: Mild RIGHT BREAST: The T2 weighted series shows no areas of abnormal signal intensity. Review of the dynamic series shows no early or abnormal enhancement. LEFT BREAST: The T2 weighted series shows stable oval retroareolar left breast mass with biopsy marker consistent with known fibroadenoma. Review of the dynamic series demonstrates 1.2 x 0.9 cm oval mildly enhancing mass with persistent enhancement kinetics which corresponds to previously described mammographic and ultrasound finding, probably benign. LYMPH NODES: There is no evidence of internal mammary or axillary adenopathy. Miscellaneous findings:None IMPRESSION: RIGHT BREAST: No MR evidence of malignancy. LEFT BREAST: 1.2 cm oval mildly enhancing mass with persistent enhancement kinetics favors fibroadenoma. Six-month follow-up ultrasound is recommended. OVERALL ASSESSMENT -- BI-RADS 3: Probably benign Short Interval Followup Recommended ANNUAL SCREENING BREAST MRI IN ADDITION TO MAMMOGRAPHY IS RECOMMENDED IN PATIENTS WITH LIFETIME RISK OF BREAST CANCER >20% MTDD
== END | disposition home or self-care (01) ==
LOC: RADMRIMAIN 13:45
PROVIDERS: ATTEND Surgery
DX: R92.8 Other abnormal and inconclusive findings on diagnostic imaging of breast (principal); N63.10 Unspecified lump in the right breast, unspecified quadrant; N63.20 Unspecified lump in the left breast, unspecified quadrant; Z80.3 Family history of malignant neoplasm of breast
CPT/HCPCS: 77049; A9585

== ENCOUNTER → 2024-03-24 | Outpatient (CLI) | payer BC ==
--- NOTE | 2024-03-24 13:20 | P.PN ---
Subjective Progress Note Date: 03/24/24 Principal diagnosis: high risk breast cancer 03-24-24 Principal diagnosis: high risk breast cancer 06-04-22 High risk breast cancer Left breast fibroadenoma Millicent is a 41-year-old [place] [address]. This revealed a 10 mm circumscribed round mass in the subareolar position of the left breast. [place] [address]. This revealed a warm 0.2 x 0.9 cm solid lesion at 12:00. Ultrasound core biopsy was recommended. She does not feel any lumps masses or nodules of concern in either breast. She is not complaining of any nipple discharge or skin changes. She is not complaining of any pain in her breast. She is not complaining of any trauma or infection in her breast. She has had bilateral axillary redundant breast tissue removed in the past. The patient has had genetic testing performed which was negative. The patient [place] ultrasound[place] [address]. This was benign BIRADS 2. It revealed a 0.8 x 0.7 cm irregular solid lesion at 12:00 with a clip in the lesion. This was reviewed personally with Dr. Montelongo and felt to be the site which had been adequately biopsied and consistent with a fibroadenoma. Patient does not complain of any new lumps masses or nodules of concern in either breast. The patient had a bilateral breast MRI on 12-02-21 which was BIRAD 2. The patient complaining of any new lumps masses or nodules of concern in either breast. Tyrer-Cuzick this evaluation was 22-36% lifetime risk of breast cancer, Eunice model was 1.8% five-year risk. We have discussed chemoprevention at this point the patient is going to close surveillance. 06-04-22 The patient is not complaining of any new lumps masses or nodules of concern in either breast. She underwent a bilateral mammogram on 3222 which was felt to be BIRADS 0 and bilateral breast ultrasound were recommended. Verbal report on the ultrasound was that this was did not show any lesions of concern. This was read as BIRAD 2. 03-05-23 [place] [address] benign Is not concerned about any lumps masses or nodules in either breast 08-13-23 bilateral mammogram and left breast ultrasound on 08-09-23; BIRAD 3 repeat left breast mammogram dna ultrasound in 6 months (alternating with MRI) The patient does not feel any lumps masses or nodules of concern in either breast.The patient has lost 40 pounds, intentionally 03-24-24 Millicent is a 43 year old female followed for high risk breast cancer and a known left breast fibro-adenoma. MRI 02-25-24 right breast no lesions of concern left breast ultrasound to evaluate probable fibroadenoma 1.2 CM She is not complaining of any new lumps masses or nodules of concern in either breast. Patient has lost 60 pounds since her last visit. Caffeine: 1 cup/day nicotine: none chocolate: none Family history: Mother: Breast cancer at 33, at 43 of mylodysplasia as complications of the treatment; had a bone marrow transplant great aunt maternal: breast cancer in 40,s of this in her 50's maternal grandfather: mylodysplasia Hormonal History: menarche: 11 , breast fed: yes, age at first :23 periods regular: 2020 BCP: at 15 to 22, and between pregnancies, not used since 2010 hormones: none Surgical history: Right knee surgery Bilateral redundant axillary tissue removed Medical history: thyroid nodules high cholesterol Social History: nicotine: none alcohol: occasional drugs: none - Constitutional Constitutional: Reports sweats - EENT Eyes: denies blurred vision, denies pain Ears: deny: decreased hearing, tinnitus Ears, nose, mouth and throat: Denies headache, Denies sore throat - Breasts Breasts: bilateral: as per HPI - Cardiovascular Cardiovascular: Denies chest pain, Denies shortness of breath - Respiratory Respiratory: Denies cough - Gastrointestinal Gastrointestinal: Denies abdominal pain, Denies diarrhea, Denies nausea, Denies vomiting - Genitourinary (Female) Genitourinary: Denies dysuria, Denies hematuria - Menstruation Menstruation: Reports period normal - Musculoskeletal Musculoskeletal: Reports myalgias - Integumentary Integumentary: Denies pruritus, Denies rash - Neurological Neurological: Denies numbness, Denies weakness - Psychiatric Psychiatric: Reports anxiety, Reports depression - Endocrine Endocrine: Reports weight change, Denies fatigue - Hematologic/Lymphatic Comment: none - Allergic/Immunologic Allergic/Immunologic: Reports as per HPI, Reports seasonal allergies Past Medical History Past Medical History: No Reported History 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 History of Any Multi-Drug Resistant Organisms: None Reported Past Surgical History: Breast Surgery, Section, Orthopedic Surgery Additional Past Surgical History / Comment(s): Right knee surgery, section 1, removal of axillary breast tissue 2012 which was benign. Past Psychological History: Anxiety, Depression Smoking Status: Never smoker Past Alcohol Use History: Rare Past Drug Use History: None Reported Objective - Constitutional General appearance: Present: cooperative - EENT Eyes: Present: EOMI ENT: Present: hearing grossly normal - Neck Neck: Present: normal ROM - Respiratory Respiratory: bilateral: CTA - Cardiovascular Rhythm: regular Heart sounds: normal: S1, S2 - Integumentary Integumentary: Present: normal turgor - Musculoskeletal Musculoskeletal: Present: gait normal - Psychiatric Psychiatric: Present: A&O x's 3, appropriate affect, intact judgment & insight - Additional findings Additional findings: Breast Exam: BRA: 38B Inspection: bilateral grade 2 ptosis Palpation: Right breast: Multi-positional exam fibrocystic changes no dominant masses or nodules of concern dense breast Right axilla: No adenopathy of concern Left breast: Multi-positional exam fibrocystic changes smoothly 1 to 2 cm in size at the 12:00 periareolar region it is tender to palpation no other discrete dominant masses or nodules of concern, dense breast Left axilla: No adenopathy of concern Assessment and Plan Assessment: Impression: Fibrocystic breast changes Risk evaluation 22-36% lifetime risk Tyrer-Cuzick model Eunice model model 1.8% 5 year risk; declined chemoprevention Patient had bilateral MRI 02-25-24; left breast ultrasound palpable mass left breast at 12:00 recommend ultrasound of this site as well Plan: Left breast ultrasound of palpable site now Left breast ultrasound of MRI site of concern now Patient to follow-up after ultrasounds are completed Bilateral mammogram in October 2024 with examination at that time as well Cc: Dr. Vásquez Additional CC's: Myriam Castellano
[2024-03-24 13:24] VITALS: BP 108/66; PULSE 68; RESP 16; TEMP 98.5
== END ==
LOC: WWCWWP 12:42
PROVIDERS: ATTEND Surgery
DX: N60.11 Diffuse cystic mastopathy of right breast (principal); N60.12 Diffuse cystic mastopathy of left breast; N63.42 Unspecified lump in left breast, subareolar; D24.2 Benign neoplasm of left breast; Z80.3 Family history of malignant neoplasm of breast; Z88.0 Allergy status to penicillin; Z88.8 Allergy status to other drugs, medicaments and biological substances

== ENCOUNTER → 2024-04-24 | Outpatient (CLI) | payer BC ==
--- NOTE | 2024-04-24 10:25 | USB ---
Reason for Exam: Clinical finding. Patient History: Menarche at age 10. First Full-Term at age 23. Patient has history of breast feeding. Patient tested for BRCA1 outcome was negative. Patient tested for BRCA2 outcome was negative. Patient tested for PTEN outcome was negative. Patient tested for TP53 outcome was negative. Patient used Hormonal Contraceptives for 8 years. 12/19/2020, Benign Core Biopsy on the left side. Maternal aunt had breast cancer, age 40. Mother had breast cancer, age 33. Risk Values: Eunice 5 year model risk: 2.5%. NCI Lifetime model risk: 22.9%. Technique: Method: Targeted. Doppler: Color. Patient Position: Supine. Prior Study Comparison: 12/19/2020 Left Diagnostic Mammogram, [facility]. 06/04/2022 Bilateral MG 3D diag mammo w/cad JOSE, [facility]. 08/09/2023 Bilateral MG 3D diag mammo w/cad JOSE, [facility]. Findings: The area of palpable concern of the left breast, the axilla of the left breast and the retroareolar of the left breast were scanned. Targeted ultrasound subareolar left breast including the 9:00 position and axilla. At the subareolar region, there is a previously biopsied fibroadenoma measuring 11 x 9 x 6 mm. A microclip year indicates prior biopsy. Back in 06-22, the area measured 9 x 8 x 7 mm. Minimally larger in the interval. At the 9:00 position, 6 cm from the nipple, there is an oval circumscribed hypoechoic mass measuring 11 x 10 x 7 mm versus 13 x 9 x 5 mm, previously. Not significantly changed. Likely representing fibroadenoma. No other solid or cystic lesion or axillary lymphadenopathy. Overall Assessment: Probably benign, BI-RAD 3 Management: Diagnostic Mammogram of both breasts in 5 months. Diagnostic Breast Ultrasound of the left breast in 5 months. A clinical breast exam by your physician is recommended on an annual basis and results should be correlated with mammographic findings. This exam should not preclude additional follow-up of suspicious palpable abnormalities. Results were given to the patient verbally at the time of exam. [facility], , 04/24/2024 10:22 AM. Electronically signed and approved by: Rosaura Catalan M.D. Radiologist
== END | disposition home or self-care (01) ==
LOC: RADUSWWP 09:45
PROVIDERS: ATTEND Surgery
DX: N63.0 Unspecified lump in unspecified breast (principal); Z80.3 Family history of malignant neoplasm of breast

== ENCOUNTER → 2024-05-04 | Outpatient (CLI) | payer BC ==
[2024-05-04 10:30] VITALS: BP 113/71; PULSE 89; RESP 17; TEMP 97.9
--- NOTE | 2024-05-04 10:52 | P.PN ---
Subjective Progress Note Date: 05/04/24 Principal diagnosis: high risk breast cancer high risk breast cancer 05-04-24 Principal diagnosis: high risk breast cancer 06-04-22 High risk breast cancer Left breast fibroadenoma Millicent is a 41-year-old white [place] [address]. This revealed a 10 mm circumscribed round mass in the subareolar position of the left breast. [place] [address]. This revealed a warm 0.2 x 0.9 cm solid lesion at 12:00. Ultrasound core biopsy was recommended. She does not feel any lumps masses or nodules of concern in either breast. She is not complaining of any nipple discharge or skin changes. She is not complaining of any pain in her breast. She is not complaining of any trauma or infection in her breast. She has had bilateral axillary redundant breast tissue removed in the past. The patient has had genetic testing performed which was negative. The patient had [place] ultrasound[place] [address]. This was benign BIRADS 2. It revealed a 0.8 x 0.7 cm irregular solid lesion at 12:00 with a clip in the lesion. This was reviewed personally with Dr. Montelongo and felt to be the site which had been adequately biopsied and consistent with a fibroadenoma. Patient does not complain of any new lumps masses or nodules of concern in either breast. The patient had a bilateral breast MRI on 12-02-21 which was BIRAD 2. The patient complaining of any new lumps masses or nodules of concern in either breast. Tyrer-Cuzick this evaluation was 22-36% lifetime risk of breast cancer, Eunice model was 1.8% five-year risk. We have discussed chemoprevention at this point the patient is going to close surveillance. 06-04-22 The patient is not complaining of any new lumps masses or nodules of concern in either breast. She underwent a bilateral mammogram on 3222 which was felt to be BIRADS 0 and bilateral breast ultrasound were recommended. Verbal report on the ultrasound was that this was did not show any lesions of concern. This was read as BIRAD 2. 03-05-23 Bilateral MRI on benign Is not concerned about any lumps masses or nodules in either breast 08-13-23 bilateral mammogram and left breast ultrasound on 08-09-23; BIRAD 3 repeat left b reast mammogram and ultrasound in 6 months (alternating with MRI) The patient does not feel any lumps masses or nodules of concern in either breast.The patient has lost 40 pounds, intentionally 03-24-24 Millicent is a 43 year old female followed for high risk breast cancer and a known left breast fibro-adenoma. MRI 02-25-24 right breast no lesions of concern left breast ultrasound to evaluate probable fibroadenoma 1.2 CM She is not complaining of any new lumps masses or nodules of concern in either breast. Patient has lost 60 pounds since her last visit. 05-04-24 Millicent is a 43 year old female followed for high risk breast cancer and a known left breast fibro-adenoma. MRI 02-25-24 right breast no lesions of concern left breast ultrasound to evaluate probable fibroadenoma 1.2 CM She is not complaining of any new lumps masses or nodules of concern in either breast. Patient has lost 60 pounds since her last visit. ultrasound of the left breast done on 04-24-24; area of concern of the left breast and retroaerolar area scanned: previously biopsied fibroadenoma measures 11 x 9 x 6 mm slightly increased in size from 9x8x7 mm in subaerolar region of the breast second lesion at 9:00 mass [id number] mm not changed probable fibroadenoma This ultrassound personally interpreted BIRAD 3 repeat bilateral mammogram in 5 months The lesion in the subareolar region has increased slightly in size, it is palpable, it is uncomfortable for the patient. For these reasons we will most likely recommended that site be excised. The second site at 9:00 has not been biopsied and we would consider doing a biopsy of this site. Caffeine: 1 cup/day nicotine: none chocolate: none Family history: Mother: Breast cancer at 33, at 43 of mylodysplasia as complications of the treatment; had a bone marrow transplant great aunt maternal: breast cancer in 40,s of this in her 50's maternal grandfather: mylodysplasia Hormonal History: menarche: 11 , breast fed: yes, age at first :23 periods regular: 2020 BCP: at 15 to 22, and between pregnancies, not used since 2010 hormones: none Surgical history: Right knee surgery Bilateral redundant axillary tissue removed Medical history: thyroid nodules high cholesterol Social History: nicotine: none alcohol: occasional drugs: none - Constitutional Constitutional: Reports sweats - EENT Eyes: denies blurred vision, denies pain Ears: deny: decreased hearing, tinnitus Ears, nose, mouth and throat: Denies headache, Denies sore throat - Breasts Breasts: bilateral: as per HPI - Cardiovascular Cardiovascular: Denies chest pain, Denies shortness of breath - Respiratory Respiratory: Denies cough - Gastrointestinal Gastrointestinal: Denies abdominal pain, Denies diarrhea, Denies nausea, Denies vomiting - Genitourinary (Female) Genitourinary: Denies dysuria, Denies hematuria - Menstruation Menstruation: Reports period normal - Musculoskeletal Musculoskeletal: Reports myalgias - Integumentary Integumentary: Denies pruritus, Denies rash - Neurological Neurological: Denies numbness, Denies weakness - Psychiatric Psychiatric: Reports anxiety, Reports depression - Endocrine Endocrine: Reports weight change, Denies fatigue - Hematologic/Lymphatic Comment: none - Allergic/Immunologic Allergic/Immunologic: Reports as per HPI, Reports seasonal allergies Past Medical History Past Medical History: No Reported History 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 History of Any Multi-Drug Resistant Organisms: None Reported Past Surgical History: Breast Surgery, Section, Orthopedic Surgery Additional Past Surgical History / Comment(s): Right knee surgery, section 1, removal of axillary breast tissue 2013 which was benign. Past Psychological History: Anxiety, Depression Smoking Status: Never smoker Past Alcohol Use History: Rare Past Drug Use History: None Reported Objective - Vital Signs Vital signs: Vital Signs Temp 97.9 F 05/04/24 10:26 Pulse 89 05/04/24 10:26 Resp 17 05/04/24 10:26 BP 113/71 05/04/24 10:26 Pulse Ox 99 05/04/24 10:26 FiO2 Intake & Output 05/03/24 05/04/24 05/04/24 18:59 06:59 18:59 Weight 54.431 kg - Constitutional General appearance: Present: cooperative - EENT Eyes: Present: EOMI ENT: Present: hearing grossly normal - Neck Neck: Present: normal ROM - Respiratory Respiratory: bilateral: CTA - Cardiovascular Heart sounds: normal: S1, S2 - Integumentary Integumentary: Present: normal turgor - Psychiatric Psychiatric: Present: A&O x's 3, appropriate affect, intact judgment & insight - Additional findings Additional findings: Breast Exam: BRA: 38B Inspection: bilateral grade 2 ptosis Palpation: Right breast: Multi-positional exam fibrocystic changes no dominant masses or nodules of concern dense breast Right axilla: No adenopathy of concern Left breast: Multi-positional exam fibrocystic changes, 1 to 2 cm nodule in size at the 12:00 periareolar region it is tender to palpation no other discrete dominant masses or nodules of concern, dense breast Left axilla: No adenopathy of concern Assessment and Plan Assessment: Impression: Fibrocystic breast changes Risk evaluation 22-36% lifetime risk Tyrer-Cuzick model Eunice model model 1.8% 5 year risk; declined chemoprevention Patient had bilateral MRI 02-25-24; left breast ultrasound palpable mass left breast at 12:00 recommend ultrasound of this site as well ultrasound of the left Breast in the periareolar region as well as the 9:00 region reveals 2 hypoechoic masses the lesion in the subareolar area has increased slightly in size and is palpable and uncomfortable for the patient the second lesion has not been biopsied and would recommend a biopsy of this site as well Plan: Ultrasound Guided core biopsy of the lesion at 9:00 in the left breast Follow-up after ultrasound core biopsy Probable resection of palpable tender mass in the periareolar region 12:00 of the left breast, this is been diagnosed as a fibroadenoma but it is increased in size it is palpable and it is symptomatic for the patient She will follow-up after core biopsy of the 9:00 breast lesion Bilateral mammogram in October 2024 with examination at that time as well Cc: Dr. Vásquez Additional CC's: Myriam Castellano
== END ==
LOC: WWCWWP 09:38
PROVIDERS: ATTEND Surgery
DX: R92.323 Mammographic fibroglandular density, bilateral breasts (principal); N63.21 Unspecified lump in the left breast, upper outer quadrant; Z88.1 Allergy status to other antibiotic agents; Z88.0 Allergy status to penicillin

== ENCOUNTER → 2024-06-29 | Outpatient (CLI) | payer BC ==
[2024-06-29 09:36] VITALS: BP 108/75; PULSE 81; RESP 17; TEMP 97.7
--- NOTE | 2024-06-29 09:55 | P.BCPN ---
Subjective Progress Note Date: 06/29/24 Principal diagnosis: fibroadenoma times two left breast 05/19/24 Principal diagnosis: symptomatic fibroadenoma 12 and 9:00 left breast ultrasound discussed and reviewed with Dr. Osborne and agrees with biopsy of the 9:00 lesion/done and this is a fibroadenoma Subjective Progress Note Date: 06-29-24 Principal diagnosis: high risk breast cancer 06-04-22 High risk breast cancer Left breast fibroadenoma Millicent is a 41-year-old [place] [address]. This revealed a 10 mm circumscribed round mass in the subareolar position of the left breast. [place] [address]. This revealed a warm 0.2 x 0.9 cm solid lesion at 12:00. Ultrasound core biopsy was recommended. She does not feel any lumps masses or nodules of concern in either breast. She is not complaining of any nipple discharge or skin changes. She is not complaining of any pain in her breast. She is not complaining of any trauma or infection in her breast. She has had bilateral axillary redundant breast tissue removed in the past. The patient has had genetic testing performed which was negative. The patient had [place] ultrasound[place] [address]. This was benign BIRADS 2. It revealed a 0.8 x 0.7 cm irregular solid lesion at 12:00 with a clip in the lesion. This was reviewed personally with Dr. Montelongo and felt to be the site which had been adequately biopsied and consistent with a fibroadenoma. Patient does not complain of any new lumps masses or nodules of concern in either breast. The patient had a bilateral breast MRI on 12-02-21 which was BIRAD 2. The patient complaining of any new lumps masses or nodules of concern in either breast. Rach-Shelley this evaluation was 22-36% lifetime risk of breast cancer, Eunice model was 1.8% five-year risk. We have discussed chemoprevention at this point the patient is going to close surveillance. 06-04-22 The patient is not complaining of any new lumps masses or nodules of concern in either breast. She underwent a bilateral mammogram on 3222 which was felt to be BIRADS 0 and bilateral breast ultrasound were recommended. Verbal report on the ultrasound was that this was did not show any lesions of concern. This was read as BIRAD 2. 03-05-23 [place] [address] benign Is not concerned about any lumps masses or nodules in either breast 08-13-23 bilateral mammogram and left breast ultrasound on 08-09-23; BIRAD 3 repeat left breast mammogram and ultrasound in 6 months (alternating with MRI) The patient does not feel any lumps masses or nodules of concern in either breast.The patient has lost 40 pounds, intentionally 03-24-24 Millicent is a 43 year old female followed for high risk breast cancer and a known left breast fibro-adenoma. MRI 02-25-24 right breast no lesions of concern left breast ultrasound to evaluate probable fibroadenoma 1.2 CM She is not complaining of any new lumps masses or nodules of concern in either breast. Patient has lost 60 pounds since her last visit. 05-04-24 Millicent is a 43 year old female followed for high risk breast cancer and a known left breast fibro-adenoma. MRI 02-25-24 right breast no lesions of concern left breast ultrasound to evaluate probable fibroadenoma 1.2 CM She is not complaining of any new lumps masses or nodules of concern in either breast. Patient has lost 60 pounds since her last visit. ultrasound of the left breast done on 04-24-24; area of concern of the left breast and retroaerolar area scanned: previously biopsied fibroadenoma measures 11 x 9 x 6 mm slightly increased in size from 9x8x7 mm in subaerolar region of the breast second lesion at 9:00 mass [id number] mm not changed probable fibroadenoma This ultrassound personally interpreted BIRAD 3 repeat bilateral mammogram in 5 months The lesion in the subareolar region has increased slightly in size, it is palpable, it is uncomfortable for the patient. For these reasons we will most likely recommended that site be excised. The second site at 9:00 has not been biopsied and we would consider doing a biopsy of this site. 05-04-24 Millicent is a 43 year old female followed for high risk breast cancer and a known left breast fibro-adenoma. MRI 02-25-24 right breast no lesions of concern left breast ultrasound to evaluate probable fibroadenoma 1.2 CM She is not complaining of any new lumps masses or nodules of concern in either breast. Patient has lost 60 pounds since her last visit. ultrasound of the left breast done on 04-24-24; area of concern of the left breast and retroaerolar area scanned: previously biopsied fibroadenoma measures 11 x 9 x 6 mm slightly increased in size from 9x8x7 mm in subaerolar region of the breast second lesion at 9:00 mass [id number] mm not changed probable fibroadenoma This ultrassound personally interpreted BIRAD 3 repeat bilateral mammogram in 5 months The lesion in the subareolar region has increased slightly in size, it is palpable, it is uncomfortable for the patient. For these reasons we will most likely recommended that site be excised. The second site at 9:00 has not been biopsied and we would consider doing a biopsy of this site. 05-19-24 Millicent is a 43 year old female followed for high risk breast cancer and a known left breast fibro-adenoma. MRI 02-25-24 right breast no lesions of concern left breast ultrasound to evaluate probable fibroadenoma 1.2 CM She is not complaining of any new lumps masses or nodules of concern in either breast. Patient has lost 60 pounds since her last visit. ultrasound of the left breast on 04-24-24 led to a core biopsy at 9:00 on 05-10-24; pathology a fibroadenoma prior biopsy of the periaerolar lesion, + fibroadenoma 06-29-24 Millicent is a 43 year old female followed for high risk breast cancer and a known left breast fibro-adenoma. MRI 02-25-24 right breast no lesions of concern left breast ultrasound to evaluate probable fibroadenoma 1.2 CM She is not complaining of any new lumps masses or nodules of concern in either breast. Patient has lost 60 pounds since her last visit. ultrasound of the left breast on 04-24-24 led to a core biopsy at 9:00 on 05-10-24; pathology a fibroadenoma prior biopsy of the periaerolar lesion, + fibroadenoma Caffeine: 1 cup/day nicotine: none chocolate: none Family history: Mother: Breast cancer at 33, at 43 of mylodysplasia as complications of the treatment; had a bone marrow transplant great aunt maternal: breast cancer in 40,s of this in her 50's maternal grandfather: mylodysplasia Hormonal History: menarche: 11 , breast fed: yes, age at first :23 periods regular: 2020 BCP: at 15 to 22, and between pregnancies, not used since 2010 hormones: none Surgical history: Right knee surgery Bilateral redundant axillary tissue removed Medical history: thyroid nodules high cholesterol Social History: nicotine: none alcohol: occasional drugs: none - Constitutional Constitutional: Reports sweats - EENT Eyes: denies blurred vision, denies pain Ears: deny: decreased hearing, tinnitus Ears, nose, mouth and throat: Denies headache, Denies sore throat - Breasts Breasts: bilateral: as per HPI - Cardiovascular Cardiovascular: Denies chest pain, Denies shortness of breath - Respiratory Respiratory: Denies cough - Gastrointestinal Gastrointestinal: Denies abdominal pain, Denies diarrhea, Denies nausea, Denies vomiting - Genitourinary (Female) Genitourinary: Denies dysuria, Denies hematuria - Menstruation Menstruation: Reports period normal - Musculoskeletal Musculoskeletal: Reports myalgias - Integumentary Integumentary: Denies pruritus, Denies rash - Neurological Neurological: Denies numbness, Denies weakness - Psychiatric Psychiatric: Reports anxiety, Reports depression - Endocrine Endocrine: Reports weight change, Denies fatigue - Hematologic/Lymphatic Comment: none - Allergic/Immunologic Allergic/Immunologic: Reports as per HPI, Reports seasonal allergies Past Medical History Past Medical History: No Reported History 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 History of Any Multi-Drug Resistant Organisms: None Reported Past Surgical History: Breast Surgery, Section, Orthopedic Surgery Additional Past Surgical History / Comment(s): Right knee surgery, section 1, removal of axillary breast tissue 2012 which was benign. Past Psychological History: Anxiety, Depression Smoking Status: Never smoker Past Alcohol Use History: Rare Past Drug Use History: None Reported Objective - Vital Signs Vital Signs: Vital Signs Temp 97.7 F 06/29/24 09:34 Pulse 81 06/29/24 09:34 Resp 17 06/29/24 09:34 BP 108/75 06/29/24 09:34 Pulse Ox 97 06/29/24 09:34 FiO2 Intake & Output 06/28/24 06/29/24 06/29/24 18:59 06:59 18:59 Weight 54.431 kg - Constitutional General appearance: Present: cooperative - EENT Eyes: Present: EOMI ENT: Present: hearing grossly normal - Neck Neck: Present: normal ROM - Breast Breast-Narrative: Breast Exam: BRA: 38B Inspection: bilateral grade 2 ptosis Palpation: Right breast: Multi-positional exam fibrocystic changes no dominant masses or nodules of concern dense breast Right axilla: No adenopathy of concern Left breast: Multi-positional exam fibrocystic changes, 1 to 2 cm nodule in size at the 12:00 periareolar region it is tender to palpation no other discrete dominant masses or nodules of concern, dense breast, 9 OClock position of hte left breast scar from biopsy well healed Left axilla: No adenopathy of concern Ptosis: Grade 2: Right Breast Ptosis, Left Breast Ptosis Breast: right: normal, left: mass (1-2 cm nodule at 12:00) Right Breast Palpation (Multi-positional): No dominant masses Left Breast Palpation (Multi-positional): Other - Respiratory Respiratory: bilateral: CTA - Cardiovascular Heart sounds: normal: S1, S2 - Gastrointestinal General gastrointestinal: Present: soft - Integumentary Integumentary Comment(s): dark skin lesion left breast Integumentary: Present: normal turgor - Musculoskeletal Musculoskeletal: Present: gait normal - Psychiatric Psychiatric: Present: A&O x's 3, appropriate affect, intact judgment & insight Assessment and Plan Plan: Impression: Fibrocystic breast changes Risk evaluation 22-36% lifetime risk Tyrer-Cuzick model Eunice model model 1.8% 5 year risk; declined chemoprevention Patient had bilateral MRI 02-25-24; left breast ultrasound palpable mass left breast at 12:00 recommend ultrasound of this site as well ultrasound of the left Breast in the periareolar region as well as the 9:00 region reveals 2 hypoechoic masses the lesion in the subareolar area has increased slightly in size and is palpable and uncomfortable for the patient the second lesion has not been biopsied and would recommend a biopsy of this site as well ultrasound core biopsy of the lesion in the 9 oClock area of the left breast: fibroadenoma 1.6 by .6 cm in size Plan: Ultrasound Guided core biopsy of the lesion at 9:00 in the left breast fibroadenoma resection of palpable tender mass in the periareolar region 12:00 of the left breast, this is been diagnosed as a fibroadenoma but it is increased in size it is palpable and it is symptomatic for the patient Jessenia bilateral mammogram 2024 needle localization of two fibroadenomas left breast, 12: 00 and 9:00 and resection in the OR, possible oncoplastic tissue transfer, excision of dark skin lesion left breast Risk and benefits of the procedure discussed with the patient. Risk include but are not limited to bleeding, infection, reaction to the anesthetic. The patient understands and wishes to proceed. Consent: I have discussed the risks, benefits and alternative therapies for the above-mentioned procedure and for both sedation/analgesia as well as necessary blood product administration, if indicated, as they pertain to this patient. The patient has indicated understanding and acceptance of the risks and procedures discussed. Cc: Dr. Vásquez Additional CC's: Damion Vásquez
== END ==
LOC: WWCWWP 08:52
PROVIDERS: ATTEND Surgery
DX: N60.12 Diffuse cystic mastopathy of left breast (principal); Z88.1 Allergy status to other antibiotic agents; Z88.8 Allergy status to other drugs, medicaments and biological substances

== ENCOUNTER 2024-07-11 07:14 | Day surgery (SDC) | payer BC ==
[2024-07-07 10:52] VITALS: BMI 22.6
[~2024-07-11 07:14] MED LIST: METHYLENE BLUE 50 MG, DEXTROSE 5% IN WATER 50 ML MISCELLANE ONE
[2024-07-11] MEDS ORDERED: HYDROmorphone 0.5 MG/0.5 ML SYRINGE IVP PRN (07:35)
[2024-07-11] MEDS: IV FLUID CONTINUATION 1,000 ML IV ONE (07:45)
[2024-07-11 07:51] LABS: Glucose,Whole Blood 89 mg/dL (70-110)
[2024-07-11] MEDS: ONDANSETRON 4 MG/2 ML VIAL IVP ONE (07:54)
[2024-07-11] MEDS: LACTATED RINGERS 1,000 ML IV SCH (07:54)
[2024-07-11] MEDS: DEXAMETHASONE SOD PHOSPHATE 4 MG/ML 1 ML VIAL IV ONE (07:54)
[2024-07-11] MEDS: ACETAMINOPHEN TAB 500 MG TAB PO PRN (07:54)
[2024-07-11] MEDS: LIDOCAINE 1% INJ 10MG/ML (20 ML MDV) SQ ONE (08:50)
[2024-07-11] MEDS: SODIUM BICARB 8.4% 50 ML SYR (1 MEQ/ML) MISCELLANE ONE (08:50)
[2024-07-11] MEDS: METHYLENE BLUE 50 MG/10 ML VIAL MISCELLANE ONE (08:57)
[2024-07-11] MEDS: HEPARIN SODIUM,PORCINE 5,000 UNIT/ML 1 ML VIAL SQ PRN (09:26)
[2024-07-11] MEDS ORDERED: PROPOFOL 10 MG/ML 20 ML VIAL IV ONE (11:15)
[2024-07-11] MEDS ORDERED: fentaNYL (PF) 50 MCG/ML 2 ML AMP ONE (11:15)
[2024-07-11] MEDS ORDERED: KETOROLAC 15 MG/ML 1 ML VIAL ONE (11:15)
[2024-07-11] MEDS ORDERED: MIDAZOLAM 2 MG/2 ML VIAL ONE (11:15)
[2024-07-11] MEDS: ceFAZolin 2 GM in DEXTROSE 5% IN WATER 50 ML IVPB PRN (11:38)
[2024-07-11] MEDS: LIDOCAINE (PF) 10 MG/ML 2 ML VIAL SQ ONE ×3 (12:08→12:53)
--- NOTE | 2024-07-11 13:01 | P.BCAON ---
Date of Procedure: 07/11/24 Preoperative Diagnosis: Fibroadenoma at 12:00 and 9:00 left breast, dark nevus left breast Postoperative Diagnosis: Same Procedure(s) Performed: Needle Localization excision of fibroadenoma 9:00 and 12:00 left breast as well as resection of dark nevus left breast, oncoplastic tissue transfer 19.5 cm2 Anesthesia: LORI Surgeon: Deidre Kemp Estimated Blood Loss (ml): 10 IV fluids (ml): 800 Pathology: other (Fibroadenoma x 2 left breast, excision of dark nevus left breast) Condition: stable Disposition: same day Indications for Procedure: Symptomatic fibroadenoma x 2 left breast, dark nevus left breast Operative Findings: Dense breast tissue, dark nevus Description of Procedure: The patient was seen initially preoperatively in the radiology suite. Needle localization of 2 areas of concern were performed at the 9:00 and 12 o'clock position in the left breast. At that time 1 cc of methylene blue diluted 10 cc and 50 cc of D5W were injected at each site. This was for further intraope rative mapping of the area of concern. The patient was then brought to the operative suite. Following induction of anesthesia the left breast was prepped and draped in a sterile fashion. The dark nevus was first marked and excised. The subcutaneous tissue was closed using 4-0 Monocryl. The nevus was 5 mm in size. Following this the 12:00 needle was used to find the periareolar fibroadenoma. A periareolar incision was used for this lesion. Dissection was followed to the tip of the needle and the blue contrast was identified. Surrounding tissue was excised. The specimen was painted for orientation. Titanium clips were placed. The deep tissues were closed using 3-0 Vicryl suture. The skin was closed using 4-0 Monocryl. Radiograph of the specimen revealed the lesion of concern as well as the needle and the clip were identified. The area at the 9 o'clock position was approached. An incision was made. The blue dyed area was resected. The dissection was carried to the tip of the needle and the specimen was resected. The size of the specimen was 3 x 2.5 cm. The specimen was painted for orientation. Radiograph of the specimen revealed the lesion of concern as well as the needle and the clip were removed. The wound was irrigated. An inferior pedicle 4 x 2 cm was formed. A superior fat pedicle 4 x 1 cm was formed. The pedicles were brought together and secured using 3-0 Vicryl suture. Total oncoplastic tissue transfer 19.5 cm. After assuring that hemostasis was attained the deep tissues were closed using 3-0 Vicryl suture. This was followed by 4-0 Monocryl subcuticular closure. 10 cc of 1% lidocaine were injected into the incisions. The patient tolerated the procedure in stable condition. All instrument and sponge counts were correct at the end of the case.
[2024-07-11 13:20] VITALS: TEMP 97.6
[2024-07-11 14:02] VITALS: RESP 16
[2024-07-11 14:27] VITALS: BP 104/65; PULSE 72
== END 2024-07-11 14:30 | disposition home or self-care (01) ==
LOC: OR 07:14
PROVIDERS: ATTEND Surgery
DX: D24.2 Benign neoplasm of left breast (principal); E04.1 Nontoxic single thyroid nodule; E78.00 Pure hypercholesterolemia, unspecified
CPT/HCPCS: 81025; 77065; 76098; 19285; 19286; 19125; 19126; C1819; J2250; J2003 ×2; J1644; J1100; J0690; J2405; J3010; J1885; J2704; Q9968; 88305; 88307

== ENCOUNTER → 2024-07-20 | Outpatient (CLI) | payer BC ==
[2024-07-20 11:23] VITALS: BP 131/86; PULSE 63; RESP 16; TEMP 97.8
--- NOTE | 2024-07-20 11:36 | P.BCPO ---
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 She also had a nevis resected with mild junctional atypia. She has ALH in her biopsy specimen. She tolerated the procedure without difficulty. Examination: Lungs: Clear Heart: Regular rate and rhythm Incisions left breast clean and dry Impression: Patient doing well postoperatively Plan: We have discussed the atypical lobular hyperplasia and she is going to have an appointment with medical oncology to consider chemoprophylaxis We have also discussed the nevus and she is going to consider an appointment with dermatology regarding the atypia and a total skin evaluation She will have a left breast ultrasound in 6 months with an appointment at that time Patient will follow-up sooner any questions or concerns CC: Deborah Wilson
== END ==
LOC: WWCWWP 10:59
PROVIDERS: ATTEND Surgery
DX: D24.2 Benign neoplasm of left breast (principal); Z88.2 Allergy status to sulfonamides; Z88.1 Allergy status to other antibiotic agents

== ENCOUNTER → 2024-10-24 | Outpatient (CLI) | payer BC ==
[2024-10-24 12:54] VITALS: BP 115/67; PULSE 61; RESP 16; TEMP 98.4
--- NOTE | 2024-10-24 13:23 | P.HPOB ---
History of Present Illness H&P Date: 10/24/24 Chief Complaint: The patient is here for her routine gynecologic exam. This is a 44-year-old G3, P3 with an LMP of 09/28/2024. Her is status post vasectomy. Menstrual periods have been regular every month. She recently was started on tamoxifen for chemoprophylaxis to prevent breast cancer because of her family history and recent breast biopsy which showed atypical lobular hyperplasia. She is without gynecologic complaints at this time. Review of Systems The patient has lost 60 pounds over the last 3 years. She has done this with regular exercise and dietary changes. She has been also using Zepbound to aid in the weight loss. She denies respiratory, cardiac, or G.I. problems. Past Medical History Past Medical History: Hyperlipidemia Additional Past Medical History / Comment(s): PAST PERSONAL CLOTHING LAUNDRY AIDE HISTORY: She has no history of STDs. She is BRCA neg. History of Any Multi-Drug Resistant Organisms: None Reported Past Surgical History: Breast Surgery, Section, Orthopedic Surgery Additional Past Surgical History / Comment(s): Right knee surgery, section X1, removal of axillary breast tissue 2012 which was benign. Past Anesthesia/Blood Transfusion Reactions: No Reported Reaction Past Psychological History: Anxiety, Depression Smoking Status: Never smoker Past Alcohol Use History: Rare (Rare sips of alcohol only.) Past Drug Use History: None Reported Additional History: She has been since 2002 and works for the [employer]. - Past Family History Mother Family Medical History: Cancer Additional Family Medical History / Comment(s): Breast cancer at age 33, at age 43. Maternal great aunt had breast cancer. Father Family Medical History: Myocardial Infarction ([place]) Medications and Allergies Home Medications Medication Instructions Recorded Confirmed Type FLUoxetine HCL [PROzac] 20 mg PO QAM 11/19/20 10/24/24 History Multivitamin [Multivitamins Adult 1 each PO DAILY 11/19/20 10/24/24 History Gummies] Tirzepatide [Zepbound] 5 mg SQ Q14D 07/07/24 10/24/24 History ALPRAZolam [Xanax] 0.25 mg PO DAILY PRN 10/24/24 10/24/24 History Tamoxifen [Nolvadex] 10 mg PO DAILY 10/24/24 10/24/24 History Allergies Allergy/AdvReac Type Severity Reaction Status Date / Time amoxicillin [From Augmentin] Allergy Rash/Hives Verified 10/24/24 12:43 clavulanic acid Allergy Rash/Hives Verified 10/24/24 12:43 [From Augmentin] Exam Vital Signs Temp Pulse Resp BP Pulse Ox 10/24/24 12:47 98.4 F 61 16 115/67 100 Intake and Output 10/23/24 10/24/24 10/24/24 22:59 06:59 14:59 Other: Weight 53.524 kg Height 5 feet 2 inches, weight 118 pounds, BMI 21.6. This is a well-developed well-nourished white female who is alert and oriented times 3 in no acute distress. HEENT: Within normal limits. NECK: Supple without mass or thyromegaly. CHEST AND LUNGS: Clear to auscultation. HEART: Regular rate and rhythm. BREASTS: Are without mass or discharge. AXILLARY EXAM: Negative for adenopathy. BACK: Negative for CVA tenderness. ABDOMEN: Soft, nontender, without palpable masses. PELVIC EXAM: Normal external genitalia. Cervix and vagina appear normal. There is no unusual discharge. There is no evidence of prolapse. The uterus is midposition, nongravid size and nontender. There are no palpable adnexal masses or tenderness. RECTAL EXAM: Rectovaginal exam is negative for mass or tenderness and is negative for occult blood. EXTREMITIES: Nontender. IMPRESSION: 1. 44-year-old premenopausal female whose is status post vasectomy, with normal gynecologic exam. 2. Family history of breast cancer and personal history of left breast atypical lobular hyperplasia. She recently has been started on tamoxifen for chemoprevention. PLAN: 1. Pap smear was deferred since she had a negative Pap smear cotest on 11/19/2020. We will repeat this in 1 year. 2. Self breast awareness was discussed with the patient. We have also discussed symptoms associated with inflammatory breast cancer. 3. Breast imaging studies are done through Dr. Wellington Cortez. She has been having alternating MRIs of the breast and mammograms every 6 months. She states she will be due for another breast imaging study in the fall and we will do this through Dr. Wellington Cortez. 4. Osteoporosis prevention was discussed. I have stressed the importance of adequate calcium, vitamin D and regular exercise. Recommended amounts of calcium and vitamin D were also discussed. 5. Colon and rectal cancer screening was discussed. Have recommended screening such as colonoscopy based on her age. She will discuss this further with her PCP and arrange it through him. 6. She will keep a menstrual calendar and call if menstrual problems. 7.She was advised to return in one year for her annual well woman exam.
== END ==
LOC: WWCWWP 12:18
PROVIDERS: ATTEND Obstetrics & Gynecology
DX: Z01.419 Encounter for gynecological examination (general) (routine) without abnormal findings (principal); Z87.42 Personal history of other diseases of the female genital tract; Z80.3 Family history of malignant neoplasm of breast; Z88.0 Allergy status to penicillin; Z88.1 Allergy status to other antibiotic agents